=== PATIENT | female | born 1985 ===

== ENCOUNTER 2020-03-14 17:18 | Emergency (ER) | payer SELFPAY ==
[2020-03-14 18:19] LABS: #Eosinphils 0.1 thou/uL (0.0-0.7); #Lymphocytes 2.2 thou/uL (1.20-3.40); #Monocytes 0.7 thou/uL (0.11-0.59); #Neutrophils 12.6 thou/uL (1.40-6.50); %Basophils 0.1 % (0.0-1.0); %Eosinophils 0.6 % (0.0-10.0); %Lymphocytes 13.9 % (21.0-51.0); %Monocytes 4.5 % (0.0-10.0); Hemoglobin 12.9 g/dL (12.0-16.0); Mean Corpuscular Hemoglobin 25.3 pg (27.0-31.0); Mean Corpuscular Volume 72.3 fL (78.0-98.0); Mean Platelet Volume 9.3 fL (7.4-10.4); Platelet Count 315 thou/uL (130-400); RBC Distribution Width 14.9 % (11.5-14.5); Red Blood Cell (RBC) Count 5.08 mill/uL (4.20-5.40); White Blood Cell (WBC) Count 15.5 thou/uL (4.8-10.8)
[2020-03-14 18:19] LABS: Bilirubin Negative (Negative); Blood, Urine 1+ (Negative); Clarity Clear (Clear); Glucose, Urine (Dipstick) Normal (Negative); Ketone, Urine Trace mg/dL (Negative); Leukocyte Negative Leu/uL (Negative); Mucous/LPF Rare LPF (<2+); Nitrite Negative (Negative); Protein, Urine (Dipstick) Negative (Neg-Trace); Specific Gravity, Urine 1.021 (1.002-1.036); Squamous Epithelial 0-3 HPF (0-3); Urobilinogen Normal mg/dL (Less than 2); WBC/HPF 0-3 HPF (0-3); pH, Urine 5.5 (5.0-9.0)
[2020-03-14 18:20] LABS: Bacteria/HPF Rare-Few HPF (None Seen)
[2020-03-14 18:21] LABS: Pregnancy Test - Urine (BHCG) Negative (Negative); Pregu Control Background? CLEAR/WHITE (CLR/WHITE); Pregu Control Bar Appear? YES (CONTROL BAR); Specific Gravity 1.021 (1.002-1.036)
[2020-03-14 18:38] LABS: ALT (SGPT) 12 U/L (8-55); AST (SGOT) 16 U/L (5-34); Albumin 4.4 g/dL (3.5-5.0); Alkaline Phosphatase 98 U/L (40-110); Anion Gap 13 mmol/L (10-20); BUN (Urea Nitrogen) 9 mg/dL (7.0-18.7); Bilirubin, Total 0.7 mg/dL (0.2-1.2); Calc. Creatinine Clearance 0 mL/min (70-130); Calcium 9.3 mg/dL (7.8-10.44); Carbon Dioxide 24 mmol/L (22-29); Chloride 107 mmol/L (98-107); Estimated GFR-MDRD 78; Globulin 3.6 g/dL (2.4-3.5); Glucose 113 mg/dL (70-105); Sodium 140 mmol/L (136-145)
[2020-03-14 18:44] LABS: Anisocytosis SLIGHT = 6-15 cells (100X) (0-5/hpf); MDiff Complete? YES; Microcytosis SLIGHT = 6-15 cells (100X) (0-5/hpf); Ovalocytes SLIGHT = 2-5 cells (100X) (0-1/hpf); Platelet Morphology Comment Appears Adequate; Polychromasia SLIGHT = 2-3 cells (100X) (0-2/hpf); Schistocytes SLIGHT = 2-5 cells (100X) (0-1/hpf)
[2020-03-14] MEDS ORDERED: Ketorolac Tromethamine 30 MG/ML VIAL ONE (19:15)
--- NOTE | 2020-03-14 19:31 | CT ---
EXAM: ABDOMEN AND PELVIC CT SCAN WITHOUT IV CONTRAST: 03/14/20 HISTORY: Left lower abdominal pain radiating into left flank, dysuria, bladder spasm, frequency, urgency. FINDINGS: There is a 0.7 cm diameter pleural based nodule in the right lower lobe. Depending upon risk, conside r follow-up complete chest CT scan in six months-one year. Postop cholecystectomy. The liver appears unremarkable. Pancreas, spleen and adrenal glands are unremarkable. No evidence for renal calculus. T he left kidney is slightly larger than the right with mild dilatation of the left upper renal collect ing system and ureter. There is a 0.5 cm diameter calculus within the urinary bladder consistent with a recently passed calculus. No CT evidence for acute appendicitis. No evidence for large or small shantelle wel obstruction. Unremarkable appearing uterus. IMPRESSION: Mild dilatation of the left upper collecting system and left ureter with a calculus within the urinar y bladder on the left side, evidence for a recently passed calculus. 0.7 cm diameter pleural based nodule in the right lower lobe. Consider complete follow-up chest CT sc an in six months-12 months depending upon patient's risks. Code LN POS: RRE
== END 2020-03-14 19:20 | disposition home or self-care (01) ==
LOC: ERS 17:18
DX: N20.0 Calculus of kidney (principal)
CPT/HCPCS: 36415; 74176; 80053; 81003; 81015; 81025; 83605; 85025; J1885